=== PATIENT | male | born 1975 | race Caucasian/White ===

== ENCOUNTER 2017-08-17 09:34 | Day surgery (SDC) | payer BC, OTHER ==
--- NOTE | 2017-08-15 11:33 | RAD REPORT ---
EXAM DESCRIPTION: Karissa Mccartney (2 Views)08/15/2017 11:11 am CLINICAL HISTORY: Preop/hernia repair COMPARISON: None FINDINGS: The lungs appear clear of acute infiltrate. The heart is normal size IMPRESSION: No acute abnormalities displayed
[2017-08-15 12:00] LABS: Absolute Lymphocytes (CBC) 1.4 K/uL (0.7-4.9); Absolute Monocytes 0.5 K/uL (0.1-1.3); Absolute Neutrophil 3.7 K/uL (1.8-8.0); Basophils % 1.3 % (0-1.3); Eosinophils % 1.1 % (0-4.4); Hematocrit 48.2 % (39.6-49.0); Lymphocytes % 24.9 % (15.3-44.8); MCH 31.5 pg (27.0-35.0); MPV 8.3 fL (7.6-11.3); Monocytes % 8.7 % (3.3-12.3); RBC Red Blood Cell Count 5.18 M/uL (4.33-5.43)
[2017-08-15 12:20] LABS: Potassium 4.5 mEq/L (3.6-5.0)
--- NOTE | 2017-08-15 13:53 | EKG ---
Test Date: 2017-08-15 Test Time: 10:50:00 [employer] Specialist: MELANIE MEASUREMENT RESULTS: Intervals: Rate: 72 KS: 154 QRSD: 98 QT: 376 QTc: 411 [place]: P: 48 KS: 154 QRS: -7 T: 54 INTERPRETIVE STATEMENTS: Normal sinus rhythm with sinus arrhythmia Normal ECG Compared to ECG 08/01/1994 13:54:00 Sinus bradycardia no longer present Electronically Signed On 08-15-17 13:52:23 CDT by George Knapp
[2017-08-17] MEDS ORDERED: Ringers Lactate 1,000 ML IV ONE (09:38)
[2017-08-17] MEDS ORDERED: CEFAZOLIN/SWI 1gm 1 GM/10 ML SYR ONE (09:39)
[2017-08-17] MEDS ORDERED: PROPOFOL 200 MG/20 ML VIAL IV ONE (09:45)
[2017-08-17] MEDS ORDERED: MIDAZOLAM HCL 2 MG/2 ML INJ ONE (09:45)
[2017-08-17] MEDS ORDERED: LIDOCAINE 2% MPF 5 ML VIAL ONE (09:46)
[2017-08-17] MEDS ORDERED: ONDANSETRON 4 MG/2 ML VIAL ONE (09:53)
[2017-08-17] MEDS ORDERED: FENTANYL CITR 100 MCG/2 ML ONE (09:53)
[2017-08-17] MEDS ORDERED: ROCURONIUM 50 MG/5 ML VIAL IV ONE (10:30)
[2017-08-17] MEDS ORDERED: NEOSTIGMINE 1 MG/ML -5 ML SYRINGE ONE (11:26)
[2017-08-17] MEDS ORDERED: GLYCOPYRROLATE 0.2 MG/ML SYR ONE (11:26)
[2017-08-17] MEDS: MEPERIDINE HCL 50 MG/ML AMP ONE ×2 (11:40→11:47)
[2017-08-17] MEDS ORDERED: MEPERIDINE HCL 25 MG/0.5 ML ONE (12:18)
--- NOTE | 2017-08-17 12:22 | P.BOP ---
Preoperative diagnosis: incarcerated right inguinal hernia Postoperative diagnosis: same Primary procedure: Open repair of incarcerated right inguinal hernia with hydrocelecomy Bluing Oven Tender: JORGE GUSTAFSON Estimated blood loss: <10cc Specimen: hernia sac/hydrocele Findings: hernia plus large hydrocele Anesthesia: General Complications: None Transferred to: Recovery Room Condition: Fair
[2017-08-17] MEDS ORDERED: CODEINE 30MG/APAP 300MG TAB ONE (13:17)
--- NOTE | 2017-10-12 14:32 | DS ---
Date of Discharge: 08/17/2017 Diagnosis: Incarcerated right inguinal hernia plus a large hydrocele on the right side. Procedures: Open repair of incarcerated right inguinal hernia with hydrocelectomy. Disposition: Home. Activity: As tolerated. No heavy lifting. Followup: Follow in my office in 1 week. Call for appointment [phone]. Keep area dry for 48 hours , then may shower. The patient advised about the importance of consulting urologist as soon as possi ble to address the issue of the hydrocele since there is a high chance of recurrence. Medications: See orders. RONI/RA Voice ID: [id number] Report ID: [id number]
--- NOTE | 2017-10-12 15:26 | OP ---
Date of Procedure: 08/17/2017 Surgeon: Miles Jesus MD Subsystems Engineer: Sumi Slater. Preoperative Diagnosis: Incarcerated right inguinal hernia. Postoperative Diagnosis: Incarcerated right inguinal hernia plus large hydrocele. Procedures: Open repair of incarcerated right inguinal hernia with right hydrocelectomy. Findings: A large hydrocele on the right side and also incarcerated right inguinal hernia. Anesthesia: General plus local. Indications: This is the case of a 42-year-old patient, comes with a very large right inguinal herni a . He understands benefits, alternatives, and risks of repair of right inguinal hernia wi th mesh which include, but are not limited to infection, bleeding, damage to adjacent structures anes thesia complication, recurrence, CA, and even . He also understands this may not relieve any sy mptoms. He might need more than one surgical intervention. He understood also the chance of chronic numbness, chronic pain, and also testicular damage. He was explained pros and cons of mesh placemen t. He understands and he was allowed to ask questions and they were answered to his satisfaction. Description Of Procedure: The patient was brought to the operating room, placed in supine position. Anesthesia was done without complication. A time-out was called. Abdomen, genitalia, and inguinal area were prepped and draped in usual sterile fashion. Incision was made in the right inguinal regio n. Incision was carried down to Eli's fascia, which was opened under direct vision. External obl ique aponeurosis was identified and opened in the direction of the fibers to meet the superficial ing uinal ring. Ilioinguinal nerve and iliohypogastric nerve were protected behind external oblique apon eurosis. Francisco placed around the spermatic cord. We noticed the patient has a large hernia sac wi th the something. gigantic hydrocele. We identified the hernia sac, dissected, and freed . This hernia sac goes all the way down and get stuck to the hydrocele. I could not remove the kelly ia sac without getting some of the hydrocele addressed. This patient will need a urologist in town a nd he is not available at this moment to be in the case, so what I dissected the hernia sac from the spermatic cord. We protected the spermatic cord structures all the time. Then after that, we procee ded to carefully, identified the hydrocele is large, will need to have a formal excision probably fro m the scrotum to get the entire area out. This part of the hydrocele was removed with the hernia sac . Several hundreds of fluids were removed from the hydrocele area. Hernia sac was then removed and opened completely. We noticed some incarcerated omentum that was retracted into the abdominal cavity . The hernia sac was then twisted and suture ligated making sure the intestines are not involved. T his was done with Prolene. Mesh plug was placed in the deep inguinal ring and secured in place with VersaTack madhuri. The testicles placed back where they belongs, made sure they are not twisted in t he scrotum. The mesh sheath was placed in the inguinal canal securing that to the pubic tubercle, sh elving edge of inguinal ligament, transversalis fascia, and the looped around the spermatic cord with out strangulation. The area was irrigated. The area of the testicle and hydrocele does not show any bleeding. The area was irrigated and after that, I proceeded to carefully ilioinguinal n erve and iliohypogastric nerve back into the inguinal canal, reconstructed superficial inguinal ring include external oblique aponeurosis without including the nerve. Eli's fascia was approximated a nd then the skin with madhuri. Sponge count and instrument counts were correct. Scrotal support was placed there. The patient tolerated the procedure well. The patient was sent to recovery in stable condition. RONI/RA Voice ID: [id number] Report ID: [id number]
== END 2017-08-17 13:44 | disposition home or self-care (01) ==
LOC: OR 09:34
PROVIDERS: ATTEND Surgery
PROC: 0YQ50ZZ Repair Right Inguinal Region, Open Approach (ICD-10-PCS; principal; 2017-08-17 11:30)
DX: K40.30 Unilateral inguinal hernia, with obstruction, without gangrene, not specified as recurrent (principal)
CPT/HCPCS: 36415; 71046; 80048; 85025; 88302; 93005; J0690; J2175; J2250; J2405; J2710; J3010